=== PATIENT | female | born 1985 | race African-American/Black ===

== ENCOUNTER 2017-12-21 08:49 | Inpatient (IN) | payer MEDICAID ==
[~2017-12-21] VITALS: Ht 175.3 cm; Wt 81.6 kg
[2017-12-21 09:00] VITALS: BP_SYST 178
[2017-12-21] MEDS ORDERED: LORazepam 2 MG/ML VIAL (FOR ER USE) IVP ONE (09:15)
[2017-12-21] MEDS ORDERED: NS 500 ML IV ONE (09:15)
[2017-12-21 09:57] LABS: BASOPHILS # (AUTO) 0.2 K/uL (0.0-0.2); BASOPHILS % (AUTO) 1.4 % (0.0-2.0); EOSINOPHILS # (AUTO) 0.3 K/uL (0.0-0.4); EOSINOPHILS % (AUTO) 2.1 % (0.0-4.0); HEMATOCRIT 32.6 % (36-48); HEMOGLOBIN 10.9 g/dL (12.0-16.0); LYMPHOCYTES # (AUTO) 3.9 K/uL (1.0-5.5); LYMPHOCYTES % (AUTO) 30.8 % (20.5-51.5); MEAN CORPUSCULAR HEMOGLOBIN 28 pg (27-31); MEAN CORPUSCULAR HGB CONC 34 % (32-36); MEAN CORPUSCULAR VOLUME 83 fL (79.0-98.0); MONOCYTES # (AUTO) 0.5 K/uL (0.0-1.0); MONOCYTES % (AUTO) 4.2 % (1.7-9.3); NEUTROPHILS # (AUTO) 7.7 K/uL (1.8-7.7); NEUTROPHILS % (AUTO) 61.5 % (40.0-70.0); PLATELET COUNT (AUTO) 430 K/uL (130-430); RED BLOOD CELL COUNT(AUTO) 3.91 MIL/uL (4.2-6.2); RED CELL DISTRIBUTION WIDTH 13.2 % (9.0-15.0); WHITE BLOOD COUNT (AUTO) 12.6 K/uL (4.8-10.8)
[2017-12-21 10:04] LABS: ACETONE, SERUM NEGATIVE (NEGATIVE)
[2017-12-21 10:06] LABS: CALCIUM 8.5 mg/dL (8.4-11.0); CHLORIDE 100 mmol/L (98-107); INR 0.9 (0.8-1.2); PROTHROMBIN TIME 9.2 SECS (9.5-12.5); SODIUM SERUM 135 mmol/L (136-145)
[2017-12-21] MEDS ORDERED: DIPHENHYDRAMINE INJ 50 MG/ML VIAL IVP ONE (10:15)
[2017-12-21] MEDS ORDERED: MORPHINE 4 MG/ML INJ. SYRINGE IVP ONE ×2 (10:15→13:00)
[2017-12-21 10:21] LABS: ALANINE AMINOTRANSFERASE 12 U/L (12-78); ALBUMIN 1.6 g/dL (3.4-4.8); ANION GAP 11 (5-15); ASPARTATE AMINOTRANSFERASE 16 U/L (10-37); CREATININE 2.26 mg/dL (0.55-1.30); FREE T4 (FREE THYROXINE) 1.1 ng/dl (0.8-1.5); GLUCOSE 387 mg/dL (70-99); TOTAL BILIRUBIN 0.1 mg/dL (0.0-1.0); UREA NITROGEN, BLOOD 26 mg/dL (8-21)
[2017-12-21 10:28] LABS: ALCOHOL, BLOOD < 3 mg/dL (<10); GFR AFRICAN AMERICAN 32 mL/min (>90); POTASSIUM 2.4 mmol/L (3.5-5.1)
[2017-12-21] MEDS ORDERED: POTASSIUM CHLORIDE 20 MEQ TAB.PRT.SR PO ONE (10:30)
[2017-12-21] MEDS ORDERED: POTASSIUM CHLORIDE 40 MEQ in NS 250 ML IV ONE (10:30)
[2017-12-21] MEDS ORDERED: KCL 20 mEq in 100 mL (PREMIX) 100 ML IV SCH (11:00)
[2017-12-21 11:28] LABS: BILIRUBIN,URINE NEGATIVE (NEGATIVE); BLOOD, URINE 2+ (NEGATIVE); CLARITY/URINE CLEAR (CLEAR); COLOR,URINE YELLOW (YELLOW); GLUCOSE,URINE 3+ (NEGATIVE); KETONES,URINE NEGATIVE (NEGATIVE); LEUKOCYTE ESTERASE ,URINE NEGATIVE (NEGATIVE); NITRITE, URINE NEGATIVE (NEGATIVE); PROTEIN URINE 3+ (NEGATIVE); UROBILINOGEN,URINE 0.2 (0.2-1.0)
[2017-12-21] MEDS ORDERED: NS 1,000 ML IV SCH (11:45)
[2017-12-21] MEDS ORDERED: LORazepam 2 MG/ML VIAL (FOR ER USE) IVP PRN (11:45)
[2017-12-21 11:50] LABS: CANNABINOID, URINE POSITIVE (NEG <=50); METHAMPHETAMINES SCREEN,URINE POSITIVE (NEG <=500)
[2017-12-21 11:51] LABS: BARBITURATE, URINE NEGATIVE (NEG <=200); BENZODIAZEPINE, URINE NEGATIVE (NEG <=150); COCAINE, URINE NEGATIVE (NEG <=150); OPIATE, URINE NEGATIVE (NEG <=100); PHENCYCLIDINE SCREEN,URINE NEGATIVE (NEG <=25); UR TRICYCLIC ANTIDEPRESSANTS NEGATIVE (NEG <=300); URINE AMPHETAMINE POSITIVE (NEG <=500); URINE METHADONE NEGATIVE (NEG <=200); URINE OXYCODONE SCREEN NEGATIVE (NEG <=100); URINE PROPOXYPHENE SCREEN NEGATIVE (NEG <=300)
[2017-12-21] MEDS ORDERED: POTASSIUM CHLORIDE 40 MEQ, LIDOCAINE JECT 2% PF 100 MG 75 MG in NS 250 ML IV ONE (12:00)
[2017-12-21 12:11] LABS: BACTERIA,URINE FEW /HPF (None Seen); MUCUS,URINE None Seen /LPF (None Seen); WBC,URINE 0-3 /HPF (0-3); YEAST,URINE None Seen /HPF (None Seen)
[2017-12-21] MEDS ORDERED: ONDANSETRON HCL 4 MG/2 ML VIAL IVP ONE (13:00)
[2017-12-21] MEDS ORDERED: DEXTROSE 50% JECT 50 ML DISP.SYRIN IVP PRN (13:15)
[2017-12-21 13:47] VITALS: BP_SYST 178
[2017-12-21] MEDS ORDERED: ONDANSETRON HCL 4 MG/2 ML VIAL IVP PRN (15:45)
[2017-12-21] MEDS ORDERED: HYDROcodone/ACETAMIN 5-325 MG TAB (NORCO/ VICODIN) PO PRN (15:45)
[2017-12-21] MEDS ORDERED: ACETAMINOPHEN 325 MG TABLET PO PRN (15:45)
[2017-12-21 16:20] VITALS: BP_SYST 178
[2017-12-21] MEDS: INSULIN REGULAR, HUMAN 100 UNITS/ML, 10 ML VIAL (novoLIN R) SUBCUT PRN ×2 (17:12→22:09)
[2017-12-21] MEDS: HYDROcodone/ACETAMIN 10-325 MG TAB PO PRN (17:17)
[2017-12-21] MEDS: cloNIDine HCL 0.1 MG TABLET PO PRN (17:17)
[2017-12-21 17:50] LABS: CALCIUM 7.7 mg/dL (8.4-11.0); CREATININE 1.97 mg/dL (0.55-1.30); POTASSIUM 3.1 mmol/L (3.5-5.1)
[2017-12-21 19:34] VITALS: BP_SYST 114
[2017-12-21 20:01] VITALS: BP_SYST 131
[2017-12-21] MEDS: NACL 0.9% 1,000 ML IV SCH (21:51)
[2017-12-21] MEDS: ENOXAPARIN SODIUM 30 MG/0.3 ML SYRINGE SUBCUT SCH (22:12)
[2017-12-22] MEDS: HYDROcodone/ACETAMIN 10-325 MG TAB PO PRN ×2 (00:23→09:50)
[2017-12-22 00:34] VITALS: BP_SYST 114
[2017-12-22] MEDS: NACL 0.9% 1,000 ML IV SCH (06:58)
[2017-12-22] MEDS: INSULIN REGULAR, HUMAN 100 UNITS/ML, 10 ML VIAL (novoLIN R) SUBCUT PRN ×3 (11:25→20:54)
[2017-12-22 12:49] VITALS: BP_SYST 168
[2017-12-22] MEDS ORDERED: LORazepam 2 MG/ML VIAL ONE (13:41)
[2017-12-22] MEDS: cloNIDine HCL 0.1 MG TABLET PO PRN (13:44)
[2017-12-22 13:49] LABS: BASOPHILS # (AUTO) 0.1 K/uL (0.0-0.2); BASOPHILS % (AUTO) 0.8 % (0.0-2.0); EOSINOPHILS # (AUTO) 0.3 K/uL (0.0-0.4); EOSINOPHILS % (AUTO) 2.5 % (0.0-4.0); HEMATOCRIT 27.3 % (36-48); LYMPHOCYTES # (AUTO) 3.8 K/uL (1.0-5.5); LYMPHOCYTES % (AUTO) 36.6 % (20.5-51.5); MEAN CORPUSCULAR HEMOGLOBIN 28 pg (27-31); MEAN CORPUSCULAR HGB CONC 33 % (32-36); MEAN CORPUSCULAR VOLUME 84 fL (79.0-98.0); MONOCYTES # (AUTO) 0.5 K/uL (0.0-1.0); MONOCYTES % (AUTO) 4.3 % (1.7-9.3); NEUTROPHILS # (AUTO) 5.8 K/uL (1.8-7.7); NEUTROPHILS % (AUTO) 55.8 % (40.0-70.0); PLATELET COUNT (AUTO) 348 K/uL (130-430); RED BLOOD CELL COUNT(AUTO) 3.26 MIL/uL (4.2-6.2); RED CELL DISTRIBUTION WIDTH 13.4 % (9.0-15.0); WHITE BLOOD COUNT (AUTO) 10.5 K/uL (4.8-10.8)
[2017-12-22 13:50] LABS: INR 0.9 (0.8-1.2); PROTHROMBIN TIME 9.2 SECS (9.5-12.5)
[2017-12-22 13:54] LABS: ALBUMIN 1.3 g/dL (3.4-4.8); CALCIUM 8.1 mg/dL (8.4-11.0); CREATININE 1.78 mg/dL (0.55-1.30); POTASSIUM 3.1 mmol/L (3.5-5.1); TOTAL BILIRUBIN 0.1 mg/dL (0.0-1.0)
[2017-12-22] MEDS ORDERED: oxyCODONE HCL 10 MG TAB.ER.12H PO ONE (14:00)
[2017-12-22] MEDS ORDERED: CARVEDILOL 25 MG TABLET (COREG) PO ONE (14:00)
[2017-12-22 15:49] LABS: BILIRUBIN,URINE NEGATIVE (NEGATIVE); BLOOD, URINE 1+ (NEGATIVE); CLARITY/URINE CLEAR (CLEAR); COLOR,URINE YELLOW (YELLOW); GLUCOSE,URINE 2+ (NEGATIVE); KETONES,URINE NEGATIVE (NEGATIVE); LEUKOCYTE ESTERASE ,URINE NEGATIVE (NEGATIVE); NITRITE, URINE NEGATIVE (NEGATIVE); PROTEIN URINE 3+ (NEGATIVE); UROBILINOGEN,URINE 0.2 (0.2-1.0)
[2017-12-22 16:12] LABS: BACTERIA,URINE RARE /HPF (None Seen); RBC,URINE 0-3 /HPF (0-3); WBC,URINE 0-3 /HPF (0-3)
[2017-12-22 16:13] LABS: MUCUS,URINE None Seen /LPF (None Seen)
[2017-12-22 16:33] VITALS: BP_SYST 162
[2017-12-22] MEDS ORDERED: POTASSIUM CHLORIDE 20 MEQ TAB.PRT.SR PO ONE (17:30)
[2017-12-22] MEDS: oxyCODONE HCL 10 MG TAB.ER.12H PO SCH (20:47)
[2017-12-22] MEDS: CARVEDILOL 25 MG TABLET (COREG) PO SCH (20:48)
[2017-12-22] MEDS: ENOXAPARIN SODIUM 30 MG/0.3 ML SYRINGE SUBCUT SCH (20:51)
[2017-12-23 00:16] VITALS: BP_SYST 138
[2017-12-23] MEDS: INSULIN REGULAR, HUMAN 100 UNITS/ML, 10 ML VIAL (novoLIN R) SUBCUT PRN ×3 (06:08→20:42)
[2017-12-23 08:00] VITALS: BP_SYST 195
[2017-12-23] MEDS: CARVEDILOL 25 MG TABLET (COREG) PO SCH ×2 (08:20→20:33)
[2017-12-23] MEDS: oxyCODONE HCL 10 MG TAB.ER.12H PO SCH ×2 (08:20→20:29)
[2017-12-23] MEDS: cloNIDine HCL 0.2 MG TABLET PO PRN ×2 (09:10→22:41)
[2017-12-23] MEDS: NACL 0.9% 1,000 ML IV SCH ×2 (10:12→20:34)
[2017-12-23] MEDS: POTASSIUM CHLORIDE 20 MEQ/PKT PACKET PO ONE ×2 (10:12→10:20)
[2017-12-23 12:00] VITALS: BP_SYST 157
[2017-12-23 16:00] VITALS: BP_SYST 147
[2017-12-23] MEDS: HYDROcodone/ACETAMIN 10-325 MG TAB PO PRN ×2 (16:02→22:42)
[2017-12-23] MEDS ORDERED: LORazepam 2 MG/ML VIAL IVP ONE (17:30)
[2017-12-23 18:48] LABS: BASOPHILS # (AUTO) 0.1 K/uL (0.0-0.2); BASOPHILS % (AUTO) 0.7 % (0.0-2.0); EOSINOPHILS # (AUTO) 0.2 K/uL (0.0-0.4); EOSINOPHILS % (AUTO) 2.4 % (0.0-4.0); HEMATOCRIT 25.2 % (36-48); HEMOGLOBIN 8.3 g/dL (12.0-16.0); LYMPHOCYTES # (AUTO) 1.9 K/uL (1.0-5.5); LYMPHOCYTES % (AUTO) 21.2 % (20.5-51.5); MEAN CORPUSCULAR HEMOGLOBIN 27 pg (27-31); MEAN CORPUSCULAR HGB CONC 33 % (32-36); MEAN CORPUSCULAR VOLUME 83 fL (79.0-98.0); MONOCYTES # (AUTO) 0.2 K/uL (0.0-1.0); MONOCYTES % (AUTO) 2.4 % (1.7-9.3); NEUTROPHILS # (AUTO) 6.5 K/uL (1.8-7.7); NEUTROPHILS % (AUTO) 73.3 % (40.0-70.0); PLATELET COUNT (AUTO) 291 K/uL (130-430); RED BLOOD CELL COUNT(AUTO) 3.03 MIL/uL (4.2-6.2); RED CELL DISTRIBUTION WIDTH 13.7 % (9.0-15.0); WHITE BLOOD COUNT (AUTO) 8.9 K/uL (4.8-10.8)
[2017-12-23 19:08] LABS: CALCIUM 7.7 mg/dL (8.4-11.0); CREATININE 1.77 mg/dL (0.55-1.30); POTASSIUM 3.2 mmol/L (3.5-5.1)
[2017-12-23] MEDS ORDERED: POTASSIUM CHLORIDE 20 MEQ TAB.PRT.SR PO ONE (20:00)
[2017-12-23] MEDS: ENOXAPARIN SODIUM 30 MG/0.3 ML SYRINGE SUBCUT SCH (20:31)
[2017-12-23] MEDS: hydrALAZINE HCL 25 MG TABLET PO SCH (20:33)
[2017-12-23 20:57] VITALS: BP_SYST 197
[2017-12-23] MEDS: LORazepam 2 MG/ML VIAL IVP PRN (22:48)
[2017-12-23 23:44] VITALS: BP_SYST 152
[2017-12-24] MEDS: LORazepam 2 MG/ML VIAL IVP PRN (02:36)
[2017-12-24 04:29] VITALS: BP_SYST 140
[2017-12-24] MEDS: HYDROcodone/ACETAMIN 10-325 MG TAB PO PRN ×2 (04:31→20:52)
[2017-12-24] MEDS: NACL 0.9% 1,000 ML IV SCH ×2 (06:55→16:09)
[2017-12-24] MEDS: INSULIN REGULAR, HUMAN 100 UNITS/ML, 10 ML VIAL (novoLIN R) SUBCUT PRN ×3 (07:01→21:02)
[2017-12-24 08:00] VITALS: BP_SYST 148
[2017-12-24 08:28] LABS: CALCIUM 7.9 mg/dL (8.4-11.0); CREATININE 1.92 mg/dL (0.55-1.30); POTASSIUM 3.3 mmol/L (3.5-5.1)
[2017-12-24 08:34] LABS: ALBUMIN 1.2 g/dL (3.4-4.8); TOTAL BILIRUBIN 0.1 mg/dL (0.0-1.0)
[2017-12-24] MEDS: hydrALAZINE HCL 25 MG TABLET PO SCH ×2 (08:51→20:52)
[2017-12-24] MEDS: CARVEDILOL 25 MG TABLET (COREG) PO SCH ×2 (08:52→20:54)
[2017-12-24] MEDS: oxyCODONE HCL 10 MG TAB.ER.12H PO SCH ×2 (08:52→17:48)
[2017-12-24 11:34] LABS: CREATININE 1.92 mg/dL (0.55-1.30)
[2017-12-24] MEDS ORDERED: LORazepam 1 MG TABLET PO ONE (14:45)
[2017-12-24] MEDS: GABAPENTIN 100 MG CAPSULE PO SCH ×2 (15:01→20:51)
[2017-12-24 19:42] LABS: TOTAL IRON BIND. CAPACITY 115 ug/dL (250-450)
[2017-12-24 20:30] VITALS: BP_SYST 206
[2017-12-24 20:42] LABS: TPROTEIN U,24HR 13286.1 mg/24HR (0-130)
[2017-12-24 20:44] LABS: CREATININE CLEARANCE,URINE 22.1 ml/min (80-120); CREATININE,URINE 21.1 MG/DL (30-125)
[2017-12-24] MEDS: ENOXAPARIN SODIUM 30 MG/0.3 ML SYRINGE SUBCUT SCH (20:48)
[2017-12-24] MEDS: LORazepam 1 MG TABLET PO SCH (20:49)
[2017-12-24] MEDS: cloNIDine HCL 0.2 MG TABLET PO PRN (20:53)
[2017-12-25 00:52] VITALS: BP_SYST 129
[2017-12-25] MEDS: oxyCODONE HCL 10 MG TAB.ER.12H PO SCH ×3 (01:09→16:48)
[2017-12-25] MEDS: NACL 0.9% 1,000 ML IV SCH (02:18)
[2017-12-25] MEDS: INSULIN REGULAR, HUMAN 100 UNITS/ML, 10 ML VIAL (novoLIN R) SUBCUT PRN ×4 (06:29→21:05)
[2017-12-25] MEDS: HYDROcodone/ACETAMIN 10-325 MG TAB PO PRN ×3 (06:31→23:30)
[2017-12-25 07:03] LABS: BASOPHILS % (AUTO) 0.3 % (0.0-2.0); EOSINOPHILS # (AUTO) 0.2 K/uL (0.0-0.4); EOSINOPHILS % (AUTO) 2.1 % (0.0-4.0); HEMATOCRIT 26.4 % (36-48); HEMOGLOBIN 8.5 g/dL (12.0-16.0); LYMPHOCYTES # (AUTO) 2.4 K/uL (1.0-5.5); MEAN CORPUSCULAR HEMOGLOBIN 27 pg (27-31); MEAN CORPUSCULAR HGB CONC 32 % (32-36); MEAN CORPUSCULAR VOLUME 84 fL (79.0-98.0); MONOCYTES # (AUTO) 0.5 K/uL (0.0-1.0); MONOCYTES % (AUTO) 5.5 % (1.7-9.3); NEUTROPHILS # (AUTO) 5.5 K/uL (1.8-7.7); NEUTROPHILS % (AUTO) 64.1 % (40.0-70.0); PLATELET COUNT (AUTO) 341 K/uL (130-430); RED BLOOD CELL COUNT(AUTO) 3.15 MIL/uL (4.2-6.2); RED CELL DISTRIBUTION WIDTH 13.6 % (9.0-15.0); WHITE BLOOD COUNT (AUTO) 8.6 K/uL (4.8-10.8)
[2017-12-25 07:21] LABS: CALCIUM 7.6 mg/dL (8.4-11.0); CREATININE 1.87 mg/dL (0.55-1.30); POTASSIUM 3.2 mmol/L (3.5-5.1)
[2017-12-25 08:10] VITALS: BP_SYST 163
[2017-12-25] MEDS: GABAPENTIN 100 MG CAPSULE PO SCH ×3 (08:51→20:56)
[2017-12-25] MEDS: CARVEDILOL 25 MG TABLET (COREG) PO SCH ×2 (08:53→20:58)
[2017-12-25] MEDS: hydrALAZINE HCL 25 MG TABLET PO SCH ×3 (08:53→20:57)
[2017-12-25] MEDS: LORazepam 1 MG TABLET PO SCH ×2 (08:54→20:57)
[2017-12-25 11:03] VITALS: BP_SYST 171
[2017-12-25] MEDS: cloNIDine HCL 0.2 MG TABLET PO PRN (12:08)
[2017-12-25] MEDS ORDERED: NEPHROVITE, (FOLIC ACID/VITAMIN B COMP W-C 1 TAB) PO SCH (14:45)
[2017-12-25 15:02] VITALS: BP_SYST 136
[2017-12-25 20:00] VITALS: BP_SYST 122
[2017-12-25] MEDS: ENOXAPARIN SODIUM 30 MG/0.3 ML SYRINGE SUBCUT SCH (21:03)
[2017-12-25 23:07] VITALS: BP_SYST 130
[2017-12-26 00:55] VITALS: BP_SYST 122
== END 2017-12-26 01:20 | disposition short-term general hospital (02) | DRG 53 ==
LOC: SED 08:49 → STU 11:34
PROVIDERS: ADMIT Internal Medicine; ATTEND Internal Medicine
PROC: 06HM33Z Insertion of Infusion Device into Right Femoral Vein, Percutaneous Approach (ICD-10-PCS; principal; 2017-12-21)
DX: G40.509 Epileptic seizures related to external causes, not intractable, without status epilepticus (principal); N17.0 Acute kidney failure with tubular necrosis; E43 Unspecified severe protein-calorie malnutrition; I42.9 Cardiomyopathy, unspecified; E11.22 Type 2 diabetes mellitus with diabetic chronic kidney disease; N18.4 Chronic kidney disease, stage 4 (severe); G83.9 Paralytic syndrome, unspecified; E11.42 Type 2 diabetes mellitus with diabetic polyneuropathy; E11.65 Type 2 diabetes mellitus with hyperglycemia; E88.09 Other disorders of plasma-protein metabolism, not elsewhere classified; G89.4 Chronic pain syndrome; E66.9 Obesity, unspecified; F17.200 Nicotine dependence, unspecified, uncomplicated; F15.23 Other stimulant dependence with withdrawal; I12.9 Hypertensive chronic kidney disease with stage 1 through stage 4 chronic kidney disease, or unspecified chronic kidney disease; D63.8 Anemia in other chronic diseases classified elsewhere; L98.9 Disorder of the skin and subcutaneous tissue, unspecified; E87.6 Hypokalemia; F12.10 Cannabis abuse, uncomplicated; Z68.26 Body mass index [BMI] 26.0-26.9, adult; Z59.0 Homelessness; Z91.14 Patient's other noncompliance with medication regimen; Z91.19 Patient's noncompliance with other medical treatment and regimen
CPT/HCPCS: 36415; 71045; 74018; 76770; 80048; 80053; 80307; 81000-TC; 82009-TC; 82140-TC; 82575-TC; 82962; 83036; 83540-TC; 83550-TC; 83605; 83880; 84156; 84439; 84484; 84702-TC; 84703; 85025; 85610-TC; 85730-TC; 87040-TC; 93005; 93306; 96365; 96366; 96375; 96376; 97116-GP; 97530-GP; 99285; C1751; G0482; J1200; J1650; J1815; J2060; J2270; J2405; J3480; J7030; J7050